=== PATIENT | male | born 2005 | race Caucasian/White ===

== ENCOUNTER 2024-12-13 15:40 | Emergency (ER) | payer OTHER, SELFPAY ==
[2024-12-13 15:43] VITALS: BP 169/96
--- NOTE | 2024-12-13 16:12 | ED.GENMED ---
History of Present Illness
General
Chief Complaint: Musculo-Skeletal Complaint
Source: patient
Exam Limitations: none
Time Seen by Provider: 12/13/24 16:04
Nursing documentation reviewed up to this point in time: agreed with
History of Present Illness
History of Present Illness:
19-year-old male with no reported chronic medical issues presents to the emergency room for evaluation of left shoulder pain. Of note, patient reports that approximately six months ago, while playing football, the patient dislocated his left
shoulder for the first time; subsequently he had three to four additional dislocation events. He was assessed by a shoulder specialist in [place], [place], and diagnosed with a slight labral tear. He continued playing sports without notable
issues until last night when he was playing basketball and performed a dunk, resulting in a loud 'shotgun' pop from the shoulder, audible to his brother and a friend. Since then, he has experienced constant pain that intensifies with movement,
especially when rotating the shoulder outward. He used [id number] Ibuprofen and Tylenol without relief and was evaluated at urgent care where he obtained a sling but no further definitive assistance. He reports the pain is localized to the
anterior shoulder with no radiation. No bruising or significant swelling was noted.
Review of Systems
Review of Systems
All Other Systems: ROS reviewed and negative except as documented in HPI and ROS
Musculoskeletal: Reports joint pain
Phy Exam
Physical Exam
Physical Exam:
General: Well appearing and non-toxic
HEENT: protecting airway
Neck: appears supple
CV: No evidence of cyanosis
Resp: No accessory muscle use
Abd: Non-distended
Extremities: No deformities; patient has some mild tenderness over the anterior shoulder around the humeral head and AC joint; he has pain through range of motion of the left shoulder most notably with external rotation and flexion, with only mild
discomfort on abduction and adduction; strong left radial pulse, motor and sensory intact in radial, median, ulnar nerve distribution left upper extremity
Neuro: Alert
Psych: Normal affect
Skin: Intact
Scores
Heart Failure Risk
Heart Failure Risk Score: Not Applicable
Heart Score for Chest Pain Patients
STEMI patient?: Not applicable
Withdrawal Assessment of Alcohol
Withdrawal Assessment Completed?: Not applicable
Course
Orders/Labs/Results
Orders:
Orders
12/13/24 15:43
Shoulder, Left, Trauma CR [CR Shoulder, Trauma - Left] Urgent
Comment:
Reason For Exam: injury playing basketball
12/13/24 16:27
Ketorolac [Toradol] 30 mg IM NOW STA
Vital Signs
Initial and Last Documented VS:
Initial Vital Signs
Temp Pulse Resp BP Pulse Ox
37.1 C 74 17 169/96 99
12/13/24 15:43 12/13/24 15:43 12/13/24 15:43 12/13/24 15:43 12/13/24 15:43
Last Documented Vital Signs
Temp Pulse Resp BP Pulse Ox
37.1 C 79 20 145/63 99
12/13/24 15:43 12/13/24 16:39 12/13/24 16:39 12/13/24 16:39 12/13/24 16:39
MDM/Problems Addressed
Differential Diagnosis Includes:
- Rotator cuff tear
- Pectoral muscle strain or tear
- Labral tear
- Acromioclavicular joint injury
- Shoulder dislocation
- Shoulder fracture
- Biceps tendon tear
- Glenohumeral joint instability
- Subacromial bursitis
- Frozen shoulder syndrome
MDM/Problems Addressed:
19-year-old male presents with left shoulder pain�had injury a few months ago with multiple dislocations, symptoms were stable until last night he had a pop while playing basketball. Vitals and exam as above. X-ray reviewed independently by me
shows no dislocation or fracture. Suspect either pectoral injury or rotator cuff injury although labral injury should also be considered. Advised patient regarding RICE, Tylenol/NSAIDs for pain control. Prescription for physical therapy and
referral to specialist for orthopedic evaluation. Advised to limit sling use to avoid frozen shoulder. His blood pressure was elevated here suspect pain related�will follow-up with PCP for this. Stable for discharge.
Acute Exacerbation and/or Progression of Chronic Illness:
Acutely hypertensive likely pain related�no emergent antihypertensives indicated
Acute Exacerbation and/or Progression of Chronic Illness: HTN
*Radiology
Radiology exam reviewed: preliminary read by ED provider and radiology read reviewed
*Pulse Oximetry
Patient hypoxic: no
*Critical Care Note
Total Time (30-74mins, 75-104mins- exclusive of procedures): Not Applicable
Data Reviewed
Source: patient
ED Attending Note
-
Portions of this chart may have been created with voice recognition software.� Occasional wrong word or��sound alike� substitutions may have occurred due to the inherent limitations of voice recognition software.
Discharge Plan
Departure
Patient Disposition: Home (Routine Discharge)
Date of Disposition: 12/13/24
Time of Disposition: 16:30
Patient with high blood pressure during this ER visit?: Yes
Discharge Problem:
Injury of shoulder, left, Hypertension
Instructions: Rotator cuff injury, RICE Therapy
Referrals:
Juani Jean CRNP [Family Provider, Pediatrics]
Mario Black MD [Active, Orthopedics] - Call in 1-3 days for appt
Referral Note: Shoulder specialist
Activity Restrictions/Additional Instructions:
Thank you for visiting the Emergency Department at [facility].
1. Please schedule a follow up appointment as directed. Call first thing tomorrow morning to make an appointment.
2. If indicated, please take your medications as instructed and indicated on discharge paperwork.
3. If any of your symptoms do not improve, or persist, or become more severe within 6-12 hours, please return to the emergency department for further care.
4. Please return to the emergency department if you develop a headache, neck pain/stiffness, fever greater than 100.4F, chest pain, shortness of breath, persistent nausea, vomiting, slurred speech, difficulty walking, numbness/tingling, weakness,
signs of infection or any other symptoms that are worrisome to you.
Please call [phone] if you have any questions.
Interventions
Interventions:
*Risk Screen - Suicide Last Done: 12/13/24 15:45
*General Assessment Last Done: 12/13/24 15:45
*Neglect/Abuse Screening Last Done: 12/13/24 15:45
*ED COVID-19 Vaccine History Last Done: 12/13/24 15:45
*Nursing Disposition Last Done: 12/13/24 16:39
ED-Musculoskeletal Assessment Last Done: 12/13/24 16:30
Discharge Date and Time
Discharge Date/Time: 12/13/24 16:40
Print Language: ROMANIAN
[2024-12-13] MEDS: TORADOL 30 MG IM (16:33)
[2024-12-13 16:39] VITALS: BP 145/63
== END 2024-12-13 16:40 | disposition home or self-care (01) ==
LOC: EMR 15:40
PROVIDERS: EMERGENCY PHYSICIAN Emergency Medicine; FAMILY PHYSICIAN Nurse Practitioner Pediatrics
DX: S49.92XA Unspecified injury of left shoulder and upper arm, initial encounter (principal); I10 Essential (primary) hypertension; X58.XXXA Exposure to other specified factors, initial encounter
CPT/HCPCS: 99283; 96372; 73030